=== PATIENT | male | born 2000 | race Caucasian/White ===

== ENCOUNTER 2024-04-06 01:18 | Emergency (ER) | payer SELFPAY ==
[2024-04-06] MEDS ORDERED: IBUPROFEN 400 MG TAB ONE (01:39)
[2024-04-06] MEDS ORDERED: AMOX/K CLAV 875 MG TAB ONE (01:39)
[2024-04-06] MEDS ORDERED: predniSONE 20 MG TAB ONE (01:39)
[2024-04-06] MEDS ORDERED: CODEINE 30MG/APAP 300MG TAB ONE (01:39)
--- NOTE | 2024-04-06 01:51 | EDPHYS ---
Physician Documentation [facility] Name: Og Mckeon Age: 23 yrs Sex: Male : 2000 Arrival Date: 04/06/2024 Time: 01:18 Bed DX3 Private MD: ED Physician David Marquez HPI: 04/06 01:37 This 23 yrs old Male presents to ER via Ambulatory with complaints of Ear Pain. cp 01:37 The patient presents with pain, that is acute. The complaints affect the left ear. cp 01:37 Onset: The symptoms/episode began/occurred yesterday. Associated signs and symptoms: cp Pertinent negatives: fever, sinus trouble, vomiting. Severity of symptoms: in the emergency department the symptoms are unchanged despite home interventions. Historical: - Allergies: : No Known Allergies; lg3 - Home Meds: : None [Active]; lg3 - PMHx: : None; lg3 - PSHx: :29 None; lg3 - Immunization history:: Adult Immunizations up to date. - Infectious Disease History:: Denies. - Social history:: Smoking status: Patient reports the use of cigarette tobacco products, smokes one pack cigarettes per day. Reported history of juuling and/or vaping. Patient uses alcohol, occasionally. street drugs, marijuana. ROS: 01:40 Constitutional: Negative for body aches, chills, fever, poor PO intake, cp 01:40 Eyes: Negative for injury, pain, redness, and discharge, cp 01:40 ENT: Positive for ear pain, Negative for drainage from ear(s), sinus pain, sore throat, difficulty swallowing, difficulty handling secretions, 01:40 Respiratory: Negative for cough, shortness of breath, wheezing, 01:40 Neuro: Negative for altered mental status, dizziness, headache, 01:40 All other systems are negative, Exam: 01:45 Constitutional: The patient appears in no acute distress, alert, awake, non-toxic, well cp developed, well nourished, obese, 01:45 Head/Face: Normocephalic, atraumatic. cp 01:45 Eyes: Periorbital structures: appear normal, Conjunctiva: normal, no exudate, no injection, Sclera: no appreciated abnormality, Lids and lashes: appear normal, bilaterally, 01:45 ENT: External ear(s): are unremarkable, Ear canal(s): are normal, clear, TM's: bulging, on the left, erythema, that is moderate, on the left, Examination of the other ear shows no obvious abnormality, Nose: is normal, Mouth: Lips: moist, Oral mucosa: moist, Posterior pharynx: Airway: no evidence of obstruction, patent, :45 Chest/axilla: Inspection: normal, :45 Cardiovascular: Rate: normal, :45 Respiratory: the patient does not display signs of respiratory distress, Respirations: normal, no use of accessory muscles, no retractions, labored breathing, is not present, Breath sounds: are clear throughout, no decreased breath sounds, no stridor, no wheezing, Vital Signs: 01:27 BP 132 / 83; Pulse 90; Resp 17 S; Temp 97.1; Pulse Ox 99% on R/A; Weight 129.27 kg (R); lg3 Height 5 ft. 11 in. (R); Pain 10/10; 01:27 Body Mass Index 39.75 (129.27 kg, 180.34 cm) lg3 01:27 Pain Scale: Adult lg3 MDM: 01:35 Medical Screening Exam initiated cp 01:40 Differential diagnosis: otitis media, otitis externa, ruptured TM, acute otalgia, cp cerumen impaction, barotrauma . 01:50 Data reviewed: vital signs, nurses notes, and as a result, I will discharge patient. cp Administered Medications: 01:41 Drug: Amoxicillin-Clavulanate PO 875 mg PO once Route: PO; lg3 01:54 Follow up: Response: No adverse reaction lg3 01:41 Drug: Ibuprofen PO 800 mg PO once Route: PO; lg3 01:54 Follow up: Response: No adverse reaction lg3 01:41 Drug: predniSONE PO 60 mg PO once Route: PO; lg3 01:54 Follow up: Response: No adverse reaction lg3 01:41 Drug: Acetaminophen-Codeine PO (300 mg-30 mg) 2 tabs PO once; RASS on ADMIN: Combtv4, lg3 Very Agttd3, Agttd2, Rstlss1, AlertClm0, Drwsy-1, Lt Sdtn-2, Mod Sdtn-3, Dp Sdtn-4, UnArsble-5 Route: PO; 01:54 Follow up: Response: No adverse reaction; RASS: Alert and Calm (0) lg3 Disposition Summary: 04/06/24 01:50 Discharge Ordered Notes: Location: Home cp Problem: new cp Symptoms: have improved cp Condition: Stable cp Diagnosis - Acute suppurative otitis media without spontaneous rupture of ear drum, left ear cp Followup: cp - With: Aeysha Bolden MD - When: 2 - 3 days - Reason: Worsening of condition Discharge Instructions: - Discharge Summary Sheet cp - Otitis Media, Adult cp Forms: - Medication Reconciliation Form cp - Antibiotic Education cp - Prescription Opioid Use cp - Patient Portal Instructions cp - Leadership Thank You Letter cp - Work release form lg3 Prescriptions: - Augmentin 875-125 mg Oral Tablet - take 1 tablet ORAL route every 12 hours for 10 days; 20 tablet; Refills: 0, cp Product Selection Permitted - Ibuprofen 800 mg Oral Tablet - take 1 tablet ORAL route every 8 hours As needed take with food; 30 tablet; cp Refills: 0, Product Selection Permitted - Medrol (Josiah) 4 mg Oral Tablets, Dose Pack - take 1 tablet ORAL route as directed - follow package instructions; 1 packet; cp Refills: 0, Product Selection Permitted Addendum: 04/07/2024 06:44 Co-signature as Attending Physician, David Marquez MD I agree with the assessment and c alanis plan of care. Signatures: David Marquez MD MD cha Page, Corey, PA PA Renee Kidd, RN RN lg3
--- NOTE | 2024-04-06 01:51 | ER ---
Nurse's Notes [facility] Name: Og Mckeon Age: 23 yrs Sex: Male : 2000 Arrival Date: 04/06/2024 Time: 01:18 Bed DX3 Private MD: Diagnosis: Acute suppurative otitis media without spontaneous rupture of ear drum, left ear Presentation: 04/06 01:27 Chief complaint: Patient states: left ear pain since yesterday. Coronavirus screen: lg3 Client denies travel out of the [place] in the last 14 days. At this time, the client does not indicate any symptoms associated with coronavirus-19. Ebola Screen: No symptoms or risks identified at this time. Initial Sepsis Screen: Does the patient meet any 2 criteria? No. Patient's initial sepsis screen is negative. Does the patient have a suspected source of infection? No. Patient's initial sepsis screen is negative. Risk Assessment: Do you want to hurt yourself or someone else? Patient reports no desire to harm self or others. Onset of symptoms was April 05, 2024. 01:27 Method Of Arrival: Ambulatory lg3 01:27 Acuity: REG 5 lg3 Triage Assessment: 01:29 General: Appears in no apparent distress. uncomfortable, Behavior is calm, cooperative. lg3 Pain: Complains of pain in left ear. EENT: Reports pain in left ear. Neuro: No deficits noted. Elliott Agitation-Sedation Scale (RASS): 0 - Alert and Calm Level of Consciousness is awake, alert, obeys commands, Oriented to person, place, time, situation. Cardiovascular: No deficits noted. Denies chest pain, shortness of breath, Capillary refill < 3 seconds Clubbing of nail beds is absent JVD is absent Patient's skin is warm and dry. Respiratory: No deficits noted. Airway is patent Respiratory effort is even, unlabored, Respiratory pattern is regular, symmetrical. GI: No deficits noted. No signs and/or symptoms were reported involving the gastrointestinal system. : No signs and/or symptoms were reported regarding the genitourinary system. Derm: No deficits noted. No signs and/or symptoms reported regarding the dermatologic system. Skin is intact, is healthy with good turgor, Skin is dry, Skin is normal, Skin temperature is warm. Musculoskeletal: No deficits noted. No signs and/or symptoms reported regarding the musculoskeletal system. Circulation, motion, and sensation intact. Range of motion: intact in all extremities. Historical: - Allergies: : No Known Allergies; lg3 - Home Meds: : None [Active]; lg3 - PMHx: : None; lg3 - PSHx: : None; lg3 - Immunization history:: Adult Immunizations up to date. - Infectious Disease History:: Denies. - Social history:: Smoking status: Patient reports the use of cigarette tobacco products, smokes one pack cigarettes per day. Reported history of juuling and/or vaping. Patient uses alcohol, occasionally. street drugs, marijuana. Screenin: [facility] ED Fall Risk Assessment (Adult) History of falling in the last 3 months, lg3 including since admission No falls in past 3 months (0 pts) Confusion or Disorientation No (0 pts) Intoxicated or Sedated No (0 pts) Impaired Gait No (0 pts) Mobility Assist Device Used No (0 pt) Altered Elimination No (0 pt) Score/Fall Risk Level 0 - 2 = Low Risk Oriented to surroundings, Maintained a safe environment, Educated pt \T\ family on fall prevention, incl call for assistance when getting out of bed, Assessed \T\ reinforced patient's understanding of fall precautions. Abuse screen: Denies threats or abuse. Denies injuries from another. Nutritional screening: No deficits noted. Tuberculosis screening: No symptoms or risk factors identified. Assessment: : General: see triage assessment. lg3 Vital Signs: 01:27 BP 132 / 83; Pulse 90; Resp 17 S; Temp 97.1; Pulse Ox 99% on R/A; Weight 129.27 kg (R); lg3 Height 5 ft. 11 in. (R); Pain 10/10; 01:27 Body Mass Index 39.75 (129.27 kg, 180.34 cm) lg3 01:27 Pain Scale: Adult lg3 ED Course: 01:18 Patient arrived in ED. jj6 01:23 David Duran PA is PHCP. cp 01:23 David Marquez MD is Attending Physician. cp 01:29 Triage completed. lg3 01:29 Arm band placed on right wrist. lg3 :31 Patient has correct armband on for positive identification. Family accompanied patient. lg3 01:31 Patient maintains SpO2 saturation greater than 95% on room air. lg3 01:49 Ayesha Bolden MD is Referral Physician. cp 01:53 No provider procedures requiring assistance completed. Patient did not have IV access lg3 during this emergency room visit. Administered Medications: 01:41 Drug: Amoxicillin-Clavulanate PO 875 mg PO once Route: PO; lg3 01:54 Follow up: Response: No adverse reaction lg3 01:41 Drug: Ibuprofen PO 800 mg PO once Route: PO; lg3 01:54 Follow up: Response: No adverse reaction lg3 01:41 Drug: predniSONE PO 60 mg PO once Route: PO; lg3 01:54 Follow up: Response: No adverse reaction lg3 01:41 Drug: Acetaminophen-Codeine PO (300 mg-30 mg) 2 tabs PO once; RASS on ADMIN: Combtv4, lg3 Very Agttd3, Agttd2, Rstlss1, AlertClm0, Drwsy-1, Lt Sdtn-2, Mod Sdtn-3, Dp Sdtn-4, UnArsble-5 Route: PO; 01:54 Follow up: Response: No adverse reaction; RASS: Alert and Calm (0) lg3 Medication: 01:31 VIS not applicable for this client. lg3 Outcome: 01:50 Discharge ordered by . cp 01:53 Discharged to home ambulatory, lg3 01:53 Condition: stable 01:53 Discharge instructions given to patient, Instructed on discharge instructions, follow up and referral plans. medication usage, Demonstrated understanding of instructions, follow-up care, medications, Prescriptions given X 3, 01:55 Patient left the ED. lg3 Signatures: David Duran PA PA cp Able, Lacie, RN RN lg3 Danae Johnson jj6
[2024-04-06 09:41] VITALS: BP 132/83; TEMP 97.1; O2SAT 99
== END 2024-04-06 01:55 | disposition home or self-care (01) ==
LOC: ER 01:18
DX: H66.002 Acute suppurative otitis media without spontaneous rupture of ear drum, left ear (principal); F17.210 Nicotine dependence, cigarettes, uncomplicated
CPT/HCPCS: 99283; J7512

== ENCOUNTER 2024-07-16 06:40 | Emergency (ER) | payer SELFPAY ==
[2024-07-16 07:21] LABS: Influenza A Ag Negative; Influenza B Ag Negative; SARS-CoV-2 Antigen Rapid Res Negative (Negative)
--- NOTE | 2024-07-16 07:30 | EDPHYS ---
Physician Documentation [facility] Name: Og Mckeon Age: 24 yrs Sex: Male : 2000 Arrival Date: 07/16/2024 Time: 06:40 Bed 19 Private MD: ED Physician Roosevelt Vu HPI: 07/16 07:28 Chief Complaint: Lung pain and wheezing. History of Present Illness: The patient des reports experiencing lung pain for an unspecified period, which led them to visit the ER today due to severe wheezing. The patient is a heavy smoker who quit smoking cigarettes last year and stopped vaping two to three weeks ago. They believe their symptoms may be related to bronchitis, as they have experienced this condition before. The patient reports waking up with a rough cough, which they attribute to the healing process after quitting smoking. Additionally, they have had a runny nose and congestion but no fevers. The patient does not use inhalers and has never used an Albuterol inhaler before. They also smoke marijuana, which contributes to coughing symptoms. Review of Systems: - Positive for wheezing, cough, runny nose, congestion. - Negative for fevers. ROS otherwise negative. . Historical: - Allergies: 06:48 No Known Allergies; lg3 - Home Meds: 06:48 None [Active]; lg3 - PMHx: 06:48 None; lg3 - PSHx: 06:48 None; lg3 - Immunization history:: Adult Immunizations up to date. - Infectious Disease History:: Denies. - Social history:: Smoking status: Patient reports the use of cigarette tobacco products, smokes two packs cigarettes per day. Reported history of juuling and/or vaping. Patient uses street drugs, marijuana. Exam: 07:28 Constitutional: This is a well developed, well nourished patient who is awake, alert, jr11 and in no acute distress. ENT: Nares patent. No nasal discharge, no septal abnormalities noted. Oropharynx with no redness, swelling, or masses, exudates, or evidence of obstruction, uvula midline. Mucous membranes moist. Neck: Trachea midline, no thyromegaly or masses palpated, and no cervical lymphadenopathy. Supple, full range of motion without nuchal rigidity, or vertebral point tenderness. No Meningismus. Chest/axilla: Normal chest wall appearance and motion. Nontender with no deformity. No lesions are appreciated. Respiratory: diffusely wheezing Abdomen/GI: Soft, non-tender, with normal bowel sounds. No distension or tympany. No guarding or rebound. No evidence of tenderness throughout. Back: No spinal tenderness. No costovertebral tenderness. Full range of motion. Skin: Warm, dry with normal turgor. Normal color with no rashes, no lesions, and no evidence of cellulitis. MS/ Extremity: Pulses equal, no cyanosis. Neurovascular intact. Full, normal range of motion. Vital Signs: 06:46 BP 141 / 96; Pulse 87; Resp 16 S; Temp 97.9(O); Pulse Ox 100% on R/A; Weight 155.58 kg lg3 (R); Height 5 ft. 11 in. (R); 06:46 Body Mass Index 47.84 (155.58 kg, 180.34 cm) lg3 MDM: 07:27 Medical Screening Exam initiated jr11 07:28 Differential Diagnosis: Other Medical Decision Making: Differential diagnosis includes: jr11 1. Bronchitis 2. Asthma exacerbation 3. Pneumonia 4. Chronic obstructive pulmonary disease (COPD) exacerbation Plan: - Prescribe Albuterol inhaler for wheezing. - Prescribe Prednisone for inflammation. - Await chest x-ray results to rule out pneumonia - XR to my read, no PNA - Educate patient on proper inhaler use and the potential side effects. - Encourage continued smoking cessation efforts. 07/16 06:51 Order name: COVID-19 Ag + Flu A+B Ag; Complete Time: 07:35 lg3 07/16 06:51 Order name: XRAY Chest Pa And Lat (2 Views) lg3 Administered Medications: No medications were administered Disposition Summary: 07/16/24 07:30 Discharge Ordered Notes: [facility] Condition: Stable jr11 Diagnosis - Cough jr11 Followup: jr11 - With: Private Physician - When: 2 - 3 days - Reason: Recheck today's complaints Discharge Instructions: - Discharge Summary Sheet jr11 - Acute Bronchitis, Adult jr11 Forms: - Medication Reconciliation Form jr11 - Antibiotic Education jr11 - Prescription Opioid Use jr11 - Patient Portal Instructions jr11 - Leadership Thank You Letter jr11 Prescriptions: - albuterol sulfate 90 mcg/actuation Inhalation HFA Aerosol Inhaler - inhale 2 inhalation INHALATION route every 4 to 6 hours as needed for jr11 bronchospasm; administer via ventilator; 17 gram; Refills: 0, Product Selection Permitted - Prednisone 20 mg Oral Tablet - take 3 tablets ORAL route once daily for 5 days; 15 tablet; Refills: 0, Product jr11 Selection Permitted - Zithromax Z-Josiah 250 mg Oral Tablet - take 1 tablet ORAL route as directed for 5 days Day 1 - take two (2) tablets jr11 one time. Day 2, 3, 4 , 5 take one (1) tablet once daily.; 6 tablet; Refills: 0, Product Selection Permitted Signatures: Dispatcher [employer] EDMS Renee Duong RN RN lg3 Roosevelt Vu MD MD jr11 Corrections: (The following items were deleted from the chart) 06:51 06:51 COVID-19 Ag + Flu A+B Ag+[id number].LAB.[id number] ordered. EDMS EDMS 06:52 06:51 Chest Pa And Lat (2 Views)+RAD.RAD.BRZ ordered. EDMS EDMS
--- NOTE | 2024-07-16 07:30 | ER ---
Nurse's Notes [facility] Name: Og Mckeon Age: 24 yrs Sex: Male : 2000 Arrival Date: 07/16/2024 Time: 06:40 Bed 19 Private MD: Diagnosis: Cough Presentation: 07/16 06:46 Chief complaint: Patient states: im a heavy smoker and my lungs hurt. i was wheezing lg3 last night in my sleep and i cant take a deep breath. Coronavirus screen: At this time, unable to obtain information related to travel outside the [place] Ebola Screen: No symptoms or risks identified at this time. Initial Sepsis Screen: Does the patient meet any 2 criteria? No. Patient's initial sepsis screen is negative. Does the patient have a suspected source of infection? No. Patient's initial sepsis screen is negative. Risk Assessment: Do you want to hurt yourself or someone else? Patient reports no desire to harm self or others. Onset of symptoms is unknown. 06:46 Method Of Arrival: Ambulatory lg3 06:46 Acuity: REG 3 lg3 Triage Assessment: 06:48 General: Appears in no apparent distress. comfortable, Behavior is calm, cooperative. lg3 Pain: Denies pain. EENT: No deficits noted. Reports nasal congestion. Neuro: No deficits noted. Elliott Agitation-Sedation Scale (RASS): 0 - Alert and Calm Level of Consciousness is awake, alert, obeys commands, Oriented to person, place, time, situation. Cardiovascular: No deficits noted. Reports shortness of breath, Heart tones S1 S2 present Capillary refill < 3 seconds Clubbing of nail beds is absent JVD is absent Patient's skin is warm and dry. Respiratory: Reports shortness of breath cough that is pain with respiration Airway is patent Respiratory effort is even, unlabored, Respiratory pattern is regular, symmetrical, Breath sounds are clear bilaterally. GI: No signs and/or symptoms were reported involving the gastrointestinal system. : No signs and/or symptoms were reported regarding the genitourinary system. Derm: No deficits noted. No signs and/or symptoms reported regarding the dermatologic system. Skin is intact, is healthy with good turgor, Skin is dry, Skin is normal, Skin temperature is warm. Musculoskeletal: No deficits noted. No signs and/or symptoms reported regarding the musculoskeletal system. Circulation, motion, and sensation intact. Range of motion: intact in all extremities. Historical: - Allergies: 06:48 No Known Allergies; lg3 - Home Meds: 06:48 None [Active]; lg3 - PMHx: 06:48 None; lg3 - PSHx: 06:48 None; lg3 - Immunization history:: Adult Immunizations up to date. - Infectious Disease History:: Denies. - Social history:: Smoking status: Patient reports the use of cigarette tobacco products, smokes two packs cigarettes per day. Reported history of juuling and/or vaping. Patient uses street drugs, marijuana. Assessment: 07:49 Reassessment: Patient is alert, oriented x 3, equal unlabored respirations, skin aa5 warm/dry/pink. Vital Signs: 06:46 BP 141 / 96; Pulse 87; Resp 16 S; Temp 97.9(O); Pulse Ox 100% on R/A; Weight 155.58 kg lg3 (R); Height 5 ft. 11 in. (R); 06:46 Body Mass Index 47.84 (155.58 kg, 180.34 cm) lg3 ED Course: 06:42 Patient arrived in ED. jj6 06:48 Triage completed. lg3 06:48 Arm band placed on right wrist. lg3 06:57 COVID swab sent to lab. Flu and/or RSV swab sent to lab. lg3 07:13 XRAY Chest Pa And Lat (2 Views) In Process Unspecified. EDCO 07:13 Roosevelt Vu MD is Attending Physician. jr11 07:49 No provider procedures requiring assistance completed. Patient did not have IV access aa5 during this emergency room visit. Administered Medications: No medications were administered Outcome: 07:30 Discharge ordered by . jr11 07:49 Discharged to home ambulatory, aa5 07:49 Condition: stable 07:49 Discharge instructions given to patient, Instructed on discharge instructions, follow up and referral plans. medication usage, Demonstrated understanding of instructions, follow-up care, medications, Prescriptions given X 3, 07:51 Patient left the ED. aa5 Signatures: Dispatcher [employer] EDCO Roro Monroe RN RN aa5 Renee Duong RN RN lg3 Danae Johnson 6 Roosevelt Vu MD MD jr11
[2024-07-16 07:55] VITALS: BP 141/96; TEMP 97.9; O2SAT 100
--- NOTE | 2024-07-16 08:13 | RAD REPORT ---
EXAMINATION: TWO VIEW CHEST XR CLINICAL INDICATION: Male, 24 years old. [facility] MAIN COUGH Bed: TECHNIQUE: 2 view radiographs of the chest were performed. COMPARISON: No prior exam. FINDINGS: The lungs are well inflated and clear. No pneumothorax or sizable effusion. The heart is normal in si ze. Mediastinal contours are unremarkable. IMPRESSION: No acute or significant abnormalities.
== END 2024-07-16 07:51 | disposition home or self-care (01) ==
LOC: ER 06:40
DX: R05.9 Cough, unspecified (principal); F17.210 Nicotine dependence, cigarettes, uncomplicated; Z11.52 Encounter for screening for COVID-19
CPT/HCPCS: 36415; 71046; 87428; 99283